=== PATIENT | female | born 1995 | race Asian ===

== ENCOUNTER 2021-03-30 02:10 | Inpatient (IN) | payer OTHER ==
[~2021-03-30] VITALS: Ht 165.1 cm; Wt 101.0 kg
[2021-03-30] MEDS ORDERED: OXYTOCIN 30U/ 0.9% NaCL 500ML 500 ML ONE (03:11)
[2021-03-30] MEDS ORDERED: NEWBORN KIT ONE (03:11)
[2021-03-30] MEDS ORDERED: FENTANYL PF 100 MCG/2ML IV PRN (03:30)
[2021-03-30] MEDS ORDERED: TERBUTALINE 1 MG/ML, 1ML IVPush PRN (03:30)
[2021-03-30] MEDS ORDERED: ONDANSETRON 2MG/ML, 2ML IVPush PRN ×2 (03:30→12:00)
[2021-03-30] MEDS ORDERED: OXYTOCIN 30U/ 0.9% NaCL 500ML 500 ML IV PRN (03:30)
[2021-03-30] MEDS ORDERED: D5%-LACTATED RINGERS 1,000 ML IV SCH (03:30)
[2021-03-30] MEDS ORDERED: TERBUTALINE 1 MG/ML, 1ML SQ PRN (03:30)
[2021-03-30] MEDS ORDERED: FENTANYL PF 100 MCG/2ML IVPush PRN (03:30)
[2021-03-30 03:32] LABS: BASOPHILS % (AUTO) 1 % (0-1); EOSINOPHILS % (AUTO) 1 % (1-7); LYMPHOCYTES % (AUTO) 18 % (22-44); MEAN CORPUSCULAR HEMOGLOBIN 25.4 pg (27.0-34.8); MEAN CORPUSCULAR HGB CONC 32.4 g/dL (32.4-35.8); MEAN PLATELET VOLUME 9.3 fL (7.4-10.4); MONOCYTES % (AUTO) 9 % (2-9); NEUTROPHILS % (AUTO) 71 % (42-75); PLATELET COUNT 248 x10^3/uL (130-400); RED BLOOD COUNT 4.76 x10^6/uL (3.82-5.3); RED CELL DISTRIBUTION WIDTH 14.4 % (9.6-15.2)
[2021-03-30] MEDS ORDERED: PLEASE ENTER ALLERGIES MC SCH (05:00)
[2021-03-30] MEDS ORDERED: PLEASE ENTER HEIGHT AND WEIGHT MC SCH (05:00)
[2021-03-30] MEDS: LACTATED RINGERS 1,000 ML IV SCH ×4 (11:12→22:30)
[2021-03-30] MEDS ORDERED: FENTANYL/BUPIV./NS/PF 250 ML EPIDCONT SCH ×3 (11:30→12:00)
[2021-03-30] MEDS ORDERED: LACTATED RINGERS 1,000 ML IVBOLUS PRN (12:00)
[2021-03-30] MEDS ORDERED: FENTANYL PF 500 MCG, BUPIVACAINE/PF 0.5%, 30ML 62.5 ML in SODIUM CHLORIDE 0.9% 177.5 ML EPIDCONT SCH (12:00)
[2021-03-30] MEDS ORDERED: BUPIVACAINE 0.25% ONE (12:00)
[2021-03-30] MEDS ORDERED: DIPHENHYDRAMINE 50 MG/ML, 1ML IVPush PRN (12:00)
[2021-03-30] MEDS ORDERED: EPHEDRINE 50 MG/ML, 1ML IVPush PRN (12:00)
[2021-03-30] MEDS ORDERED: NALOXONE 0.4 MG/ML, 1ML IVPush PRN (12:00)
[2021-03-30] MEDS ORDERED: LACTATED RINGERS 1,000 ML IV SCH (13:00)
[2021-03-30] MEDS ORDERED: AMPICILLIN 2 GM in SODIUM CHLORIDE 0.9% 100 ML IV SCH (19:00)
[2021-03-30] MEDS ORDERED: SODIUM CITRATE/CITRIC ACID 15 ML UDC ONE (21:54)
[2021-03-30] MEDS ORDERED: METOCLOPRAMIDE 5 MG/ML, 2ML ONE (21:55)
[2021-03-30] MEDS ORDERED: LIDOCAINE/MPF 2%-EPI 1:200K, 20 ML ONE (22:08)
[2021-03-30] MEDS ORDERED: KETOROLAC 30 MG/1 ML ONE (22:16)
[2021-03-30] MEDS ORDERED: morphine SULFATE/PF 0.5 MG/ML, 10ML ONE (22:16)
[2021-03-30] MEDS ORDERED: DEXAMETHASONE 4 MG/ML, 1ML ONE (22:16)
[2021-03-30] MEDS ORDERED: SODIUM CHLORIDE 0.9% PF 10ML ONE (22:16)
[2021-03-30] MEDS ORDERED: ONDANSETRON 2MG/ML, 2ML ONE (22:16)
[2021-03-30] MEDS ORDERED: CEFAZOLIN 1,000 MG ONE (22:16)
[2021-03-30] MEDS ORDERED: OXYTOCIN 10 UNITS/ML, 1ML ONE (22:16)
[2021-03-30] MEDS ORDERED: SIMETHICONE 80 MG CHEW TAB PO PRN (22:30)
[2021-03-30] MEDS ORDERED: SODIUM CITRATE/CITRIC ACID 30 ML UDC PO ONE (22:30)
[2021-03-30] MEDS ORDERED: DIPH,PERTUSS(ACELL),TET VAC/PF NC IM-VACC PRN (22:30)
[2021-03-30] MEDS ORDERED: METOCLOPRAMIDE 5 MG/ML, 2ML IV ONE (22:30)
[2021-03-30] MEDS ORDERED: ONDANSETRON 2MG/ML, 2ML IV PRN (22:30)
[2021-03-30] MEDS ORDERED: CARBOPROST TROMETHAMINE 250 MCG/ML, 1ML IM PRN (22:30)
[2021-03-30] MEDS ORDERED: GLYCERIN ADULT SUPP PR PRN (22:30)
[2021-03-30] MEDS ORDERED: MEPERIDINE/PF 50 MG/ML IM PRN (22:30)
[2021-03-30] MEDS ORDERED: MEASLES,MUMPS&RUBELLA VACC/PF 0.5 ML SQ-VACC PRN (22:30)
[2021-03-30] MEDS ORDERED: BISACODYL 10 MG SUPP PR PRN (22:30)
[2021-03-30] MEDS ORDERED: IBUPROFEN 600 MG TABLET PO PRN (22:30)
[2021-03-30] MEDS ORDERED: METOCLOPRAMIDE 5 MG/ML, 2ML IV PRN (22:30)
[2021-03-30] MEDS ORDERED: CALCIUM CARBONATE 500 MG TAB.CHEW PO PRN (22:30)
[2021-03-30] MEDS: OXYTOCIN 30U/ 0.9% NaCL 500ML 500 ML IV SCH (22:30)
[2021-03-30] MEDS ORDERED: MISOPROSTOL 200 MCG TABLET PR PRN (22:30)
[2021-03-30] MEDS ORDERED: METHYLERGONOVINE 0.2 MG/ML IM PRN (22:30)
[2021-03-30] MEDS ORDERED: ACETAMINOPHEN 325 MG TABLET PO PRN ×2 (22:30)
[2021-03-30] MEDS ORDERED: LACTATED RINGERS 1,000 ML IVBOLUS ONE (22:30)
[2021-03-31 01:40] VITALS: BP 129/82
[2021-03-31] MEDS: KETOROLAC 30 MG/1 ML IV SCH ×5 (05:27→22:29)
[2021-03-31 05:30] VITALS: BP 94/60
[2021-03-31] MEDS: LACTATED RINGERS 1,000 ML IV SCH ×5 (06:30→22:30)
[2021-03-31 07:34] LABS: MEAN CORPUSCULAR HEMOGLOBIN 25.6 pg (27.0-34.8); MEAN CORPUSCULAR HGB CONC 32.5 g/dL (32.4-35.8); MEAN PLATELET VOLUME 9.2 fL (7.4-10.4); PLATELET COUNT 212 x10^3/uL (130-400); RED BLOOD COUNT 4.12 x10^6/uL (3.82-5.3); RED CELL DISTRIBUTION WIDTH 14.8 % (9.6-15.2)
[2021-03-31 07:55] LABS: BAND#(MANUAL) 1.09 x10^3/uL; BANDS%(MANUAL) 4 % (0-7); LYMPH#(MANUAL) 0.82 x10^3/uL (1-3.4); LYMPHS% (MANUAL) 3 % (22-44); MICROCYTOSIS 1+; MONOS#(MANUAL) 0.55 x10^3/uL (0.3-2.7); MONOS% (MANUAL) 2 % (2-9); SEG#(MANUAL) 24.84 x10^3/uL (1.8-6.8); SEGS% (MANUAL) 91 % (42-75)
[2021-03-31 07:56] LABS: <PLATELET ESTIMATE> ADEQUATE; <PLT MORPHOLOGY> NORMAL PLT MORPH
[2021-03-31] MEDS: OXYTOCIN 30U/ 0.9% NaCL 500ML 500 ML IV SCH ×2 (08:30→18:30)
[2021-03-31 08:45] VITALS: BP 97/61
[2021-03-31] MEDS: DOCUSATE 100 MG CAPSULE PO PRN ×2 (11:13→22:28)
[2021-03-31] MEDS: PRENATAL VIT/IRON/FA 1 EACH TABLET PO SCH (11:13)
[2021-03-31 12:25] VITALS: BP 103/69
[2021-03-31 16:15] VITALS: BP 103/70
[2021-03-31 20:10] VITALS: BP 108/74
[2021-03-31] MEDS: OXYcodone/APAP 5/325MG TABLET PO PRN (22:28)
[2021-04-01] MEDS: OXYcodone/APAP 5/325MG TABLET PO PRN ×3 (02:34→16:42)
[2021-04-01] MEDS: LACTATED RINGERS 1,000 ML IV SCH ×4 (04:30→14:30)
[2021-04-01] MEDS: OXYTOCIN 30U/ 0.9% NaCL 500ML 500 ML IV SCH ×2 (04:30→14:30)
[2021-04-01] MEDS: KETOROLAC 30 MG/1 ML IV SCH ×3 (04:33→16:41)
[2021-04-01 07:15] VITALS: BP 117/82
[2021-04-01] MEDS: DOCUSATE 100 MG CAPSULE PO PRN (07:40)
[2021-04-01] MEDS: PRENATAL VIT/IRON/FA 1 EACH TABLET PO SCH (07:40)
[2021-04-01] MEDS ORDERED: OXYC1TAB14 PO (17:43)
[2021-04-01] MEDS ORDERED: IBUP-1222 PO (17:43)
== END 2021-04-01 18:20 | disposition home or self-care (01) | DRG 788 ==
LOC: LDOP 02:10 → LDIP 03:12 → 2NW 03-31 01:20
PROVIDERS: ADMIT Obstetrics & Gynecology; ATTEND Obstetrics & Gynecology
PROC: 10D00Z1 Extraction of Products of Conception, Low, Open Approach (ICD-10-PCS; principal; 2021-03-30)
DX: O77.0 Labor and delivery complicated by meconium in amniotic fluid (principal); Z20.822 Contact with and (suspected) exposure to COVID-19; O48.0 Post-term pregnancy; O69.81X0 Labor and delivery complicated by cord around neck, without compression, not applicable or unspecified; Z37.0 Single live birth; Z3A.40 40 weeks gestation of pregnancy
CPT/HCPCS: 36415; J7121; S0020; 85025; 86592; 86850; 86900; 87635; 89060; 90715; G0378; J0290; J0690; J1100; J1885; J2274; J2405; J3010; J2590; J2765; J7050; J7120; Q0114

== ENCOUNTER 2021-04-26 10:50 | Emergency (ER) | payer OTHER ==
[~2021-04-26] VITALS: Ht 165.1 cm; Wt 80.2 kg
[~2021-04-26 10:50] MED LIST: IBUP-1222 PO; OXYC1TAB12 PO
--- NOTE | 2021-04-26 14:24 | NUR ---
Patient to room from lobby
--- NOTE | 2021-04-26 15:21 | NUR ---
TESTS RESULTED, CHART UP FOR RECHECK. PT AWARE
[2021-04-26] MEDS ORDERED: FILTER 0.22 MICRON IV ONE (16:30)
[2021-04-26] MEDS ORDERED: CASIRIVIMAB 600 MG, IMDEVIMAB (REGN10987) 600 MG in SODIUM CHLORIDE 0.9% 250 ML IVPB ONE (16:30)
--- NOTE | 2021-04-26 16:58 | NUR ---
PIV EST. JUN REQUEST SENT TO PHARMACY. CALL LIGHT W/I REACH, VSS.
--- NOTE | 2021-04-26 17:19 | NUR ---
RECGENERON INFUSING ON PUMP W/O DIFFICULTY. CALL LIGHT W/I REACH
--- NOTE | 2021-04-26 18:28 | NUR ---
REGENERON INFUSION COMPLETED, VSS. PT TOLLERATED WELL. PT UNDERSTANDS NEED FOR MONITORING FOR 1HR POST INFUSION
[2021-04-26 18:30] VITALS: BP 105/73
== END 2021-04-26 19:29 | disposition home or self-care (01) ==
LOC: ED 10:52
DX: J12.9 Viral pneumonia, unspecified (principal); R94.31 Abnormal electrocardiogram [ECG] [EKG]
CPT/HCPCS: 71045; 93005; 99285; M0243